=== PATIENT | male | born 1980 | race Caucasian/White ===

== ENCOUNTER → 2020-08-27 14:02 | Outpatient (BNVA) | payer OTHER, SELFPAY | PROVIDERS: PCP Hospitalist; Visit Provider Internal Medicine | DX: S61.312A Laceration without foreign body of right middle finger with damage to nail, initial encounter (principal); W31.9XXA Contact with unspecified machinery, initial encounter | CPT/HCPCS: 99203 ==

== ENCOUNTER 2021-06-03 10:02 | Outpatient (REF) | payer OTHER, SELFPAY ==
--- NOTE | ~2021-06-03 | XR_ITS ---
EXAMINATION: XR LUMBOSACRAL SPINE CLINICAL INFORMATION: Lower back pain. COMPARISON: None TECHNIQUE: Three views of the lumbosacral spine. FINDINGS: Mild straightening of the normal lumbar lordosis, which may be positional or related to muscle spasm. No acute fracture or subluxation. No loss of vertebral body height. Mild loss of intervertebral disc height at L5-S1. Tiny anterior endplate osteophytes at L3-L4. No lytic or blastic osseous lesion. No abnormal soft tissue calcification. XR/XR lumbar spine 2-3V IMPRESSION: Mild straightening of the normal lumbar lordosis, which may be positional or related to muscular spasm. Minimal degenerative disc disease at L3-L4 and L5-S1.
== END 2021-06-03 10:03 | disposition home or self-care (01) ==
LOC: HO.XRAY 10:02
PROVIDERS: PCP Family Medicine; Visit Provider Family Medicine
DX: M54.5 Low back pain (principal)
CPT/HCPCS: 72100